=== PATIENT | female | born 1970 | race African-American/Black ===

== ENCOUNTER 2016-11-04 18:39 | Emergency (ER) | payer MEDICARE, MEDICAID ==
[2016-11-04 19:47] LABS: APPEARANCE,URINE CLEAR; BILIRUBIN,URINE NEGATIVE (NEGATIVE); GLUCOSE, URINE NEGATIVE (NEGATIVE); KETONES,URINE TRACE mg/dL (NEGATIVE); LEUKOCYTE ESTERASE,URINE NEGATIVE (NEGATIVE); NITRITE,URINE NEGATIVE (NEGATIVE); PROTEIN,URINE NEGATIVE (NEGATIVE); URINE SPECIFIC GRAVITY 1.003; UROBILINOGEN,URINE NEGATIVE mg/dL (<2.0)
[2016-11-04 19:47] LABS: ABSOLUTE BASOPHILS # (AUTO) 0.1 10^3/uL (0.0-0.2); ABSOLUTE EOSINOPHILS # (AUTO) 0.1 10^3/uL (0.0-0.6); ABSOLUTE LYMPHOCYTES (AUTO) 2.2 10^3/uL (0.5-4.7); ABSOLUTE MONOCYTES (AUTO) 0.6 10^3/uL (0.1-1.4); ABSOLUTE NEUT (AUTO) 5.3 10^3/uL (1.7-8.2); BASOPHILS % (AUTO) 0.8 % (0-2); EOSINOPHILS % (AUTO) 0.7 % (0-6); HEMATOCRIT 35.2 % (36.0-47.0); HEMOGLOBIN 11.5 g/dL (12.0-15.5); HGB HCT DIFFERENCE -0.7; LYMPHOCYTES % (AUTO) 26.7 % (13-45); MEAN CORPUSCULAR HEMOGLOBIN 27.1 pg (27.0-33.4); MEAN CORPUSCULAR HGB CONC 32.6 g/dL (32.0-36.0); MEAN CORPUSCULAR VOLUME 83 fl (80-97); MONOCYTES % (AUTO) 7.7 % (3-13); RED BLOOD COUNT 4.23 10^6/uL (3.72-5.28); RED CELL DISTRIBUTION WIDTH 15.4 % (11.5-14.0); SEGMENTED NEUTROPHILS % (AUTO) 64.1 % (42-78); WHITE BLOOD COUNT 8.3 10^3/uL (4.0-10.5)
[2016-11-04 20:01] LABS: ALANINE AMINOTRANSFERASE 35 U/L (9-52); ALBUMIN 4.4 g/dL (3.5-5.0); ALKALINE PHOSPHATASE 81 U/L (38-126); ANION GAP 14 (5-19); ASPARTATE AMINO TRANSFERASE 25 U/L (14-36); BILIRUBIN,DIRECT 0.3 mg/dL (0.0-0.4); BILIRUBIN,TOTAL 1.1 mg/dL (0.2-1.3); BLOOD UREA NITROGEN 8 mg/dL (7-20); CALCIUM 11.6 mg/dL (8.4-10.2); CARBON DIOXIDE 20 mmol/L (22-30); CHLORIDE 109 mmol/L (98-107); CREATININE RESULT 0.97 mg/dL (0.52-1.25); GLUCOSE 82 mg/dL (75-110); POTASSIUM 3.7 mmol/L (3.6-5.0); SODIUM 143.1 mmol/L (137-145); TOTAL PROTEIN 7.5 g/dL (6.3-8.2)
[2016-11-04 20:07] LABS: ALCOHOL < 10 mg/dL (NONE DETECTED)
[2016-11-04 20:26] LABS: URINE BARBITURATES SCREEN NEGATIVE; URINE METHADONE SCREEN NEGATIVE; URINE OPIATES LOW NEGATIVE; URINE PHENCYCLIDINE SCREEN NEGATIVE
--- NOTE | 2016-11-04 20:37 | ER Document Report ---
ED Psych Disorder / Suicide - General Information source: Patient TRAVEL OUTSIDE OF THE [place] IN LAST 30 DAYS: No <MARGUERITE RICHTER - Last Filed: 11/04/16 23:09> <ISRRAEL BALBUENA - Last Filed: 11/04/16 23:15> - General Chief Complaint: Psych Problem Stated Complaint: PSYCH EVALUATION Time Seen by Provider: 11/04/16 20:21 Notes: Patient is a 46 year old female who presents to the ED with complaints of visual hallucinations of animals and auditory hallucinations. Patient states she thought a man named Ayad liked her and was going to her and she has stayed outside and all day yesterday. Patient states she has not had much sleep. Patient keeps asking to talk to her mom, dad and sister and stating that she wants someone to send someone to go check on them at their house. Patient wants someone to pray for them. Patient states she has been out of her medications for 3-4 days starting last week. Patient denies any of her hallucinations telling her they are going to hurt her or telling her to hurt herself. Patient keeps repeating "you are going to think this is crazy but its real". Patient is visibly upset. She states her parents brought her into the ED. Parents brought her in because she has been out of her medication for three days , medication is delivered through a mail order pharmacy, she has been talking non stop and not sleeping. This is typical when she does not get any sleep. ( MARGUERITE RICHTER) - Related Data Allergies/Adverse Reactions: No Known Allergies Allergy (Verified 11/04/16 20:47) Past Medical History - General Information source: Patient - Social History Smoking Status: Never Smoker Chew tobacco use (# tins/day): No Frequency of alcohol use: None Drug Abuse: None Family History: Reviewed & Not Pertinent Patient has suicidal ideation: No Patient has homicidal ideation: No Renal/ Medical History: Denies: Hx Peritoneal Dialysis Psychiatric Medical History: Reports: Hx Bipolar Disorder, Hx Schizophrenia <MARGUERITE RICHTER - Last Filed: 11/04/16 23:09> Review of Systems - Review of Systems Constitutional: No symptoms reported EENT: No symptoms reported Cardiovascular: No symptoms reported Respiratory: No symptoms reported Gastrointestinal: No symptoms reported Genitourinary: No symptoms reported Female Genitourinary: No symptoms reported Musculoskeletal: No symptoms reported Skin: No symptoms reported Hematologic/Lymphatic: No symptoms reported Neurological/Psychological: See HPI, Hallucinations <MARGUERITE RICHTER - Last Filed: 11/04/16 23:09> Physical Exam <MARGUERITE RICHTER - Last Filed: 11/04/16 23:09> <ISRRAEL BALBUENA - Last Filed: 11/04/16 23:15> - Vital signs Vitals: Temp Pulse Resp BP Pulse Ox 97.9 F 77 16 151/89 H 96 11/04/16 18:47 11/04/16 18:47 11/04/16 18:47 11/04/16 18:47 11/04/16 18:47 - Notes Notes: GENERAL: Alert. Upset. Agitated. Difficult to get her to focus and answer questions. HEAD: Normocephalic, atraumatic. EYES: Pupils equal, round, and reactive to light. Extraocular movements intact. ENT: Oral mucosa moist, tongue midline. NECK: Full range of motion. Supple. Trachea midline. LUNGS: Clear to auscultation bilaterally, no wheezes, rales, or rhonchi. No respiratory distress. HEART: Regular rate and rhythm. No murmurs, gallops, or rubs. ABDOMEN: Soft, non-tender. Non-distended. Bowel sounds present in all 4 quadrants. EXTREMITIES: Moves all 4 extremities spontaneously. No edema. No cyanosis. NEUROLOGICAL: Alert and oriented x3. Normal speech. PSYCH: Tearful. Agitated. Demanding we call family because they are in danger. Able to be distracted and calmed down but when left alone cries again and demands to see parents. Somewhat unreasonable. SKIN: Warm, dry, normal turgor. No rashes or lesions noted. (MARGUERITE RICHTER) Course - Laboratory Result Diagrams: 11/04/16 19:33 11/04/16 19:33 <MARGUERITE RICHTER - Last Filed: 11/04/16 23:09> - Laboratory Result Diagrams: 11/04/16 19:33 11/04/16 19:33 <ISRRAEL BALBUENA - Last Filed: 11/04/16 23:15> - Re-evaluation Re-evalutation: 11/04/16 21:04 Family is at bedside. Able to speak with parents. Parents brought her in because she has been out of her medication for three days, medication is delivered through a mail order pharmacy, she has been talking non stop and not sleeping. This is typical when she does not get any sleep. (MARGUERITE RICHTER) 11/04/16 23:11CBC shows anemia with hemoglobin 11.5, CMP grossly unremarkable mild dehydration with a CO2 of 20, calcium is elevated at 11.6. No signs of renal failure, urinalysis shows trace ketones and small blood, urine drug screen negative, salicylates, acetaminophen and alcohol are all undetectable, lithium level surprisingly is elevated at 1.5. This is unexpected as the patient has been out of her medications for 3 days. 11/04/16 23:12 11/04/16 23:12 Patient will be observed in the ED overngiht, treated with haldol and benadryl as she is still quite agitated, dose had to be increased and Ativan added as 50 mg of Benadryl and 5 mg of Haldol did not calm her down at all and she was still having active hallucinations of a man in her room. Patient will have her lithium level rechecked in the morning to ensure that it is clearing. No evidence of lithium toxicity at this time that will require dialysis. Patient is involuntarily committed. Parents are aware of this. Mental health has been consulted. (ISRRAEL BALBUENA) - Vital Signs Vital signs: Temp Pulse Resp BP Pulse Ox 97.7 F 87 16 164/92 H 97 11/04/16 21:26 11/04/16 21:26 11/04/16 21:26 11/04/16 21:26 11/04/16 21:26 - Laboratory Laboratory results interpreted by me: 11/04/16 11/04/16 11/04/16 18:50 19:33 19:33 Hgb 11.5 L Hct 35.2 L RDW 15.4 H Chloride 109 H Carbon Dioxide 20 L Calcium 11.6 H Urine Ketones TRACE H Urine Blood SMALL H Salicylates < 1.0 L Acetaminophen < 10 L [place] 11/04/16 19:33 Hgb Hct RDW Chloride Carbon Dioxide Calcium Urine Ketones Urine Blood Salicylates Acetaminophen [place] 1.5 H - EKG Interpretation by Me Additional EKG results interpreted by me: 11/04/16 23:12 EKG shows sinus rhythm at a rate of 75, segment elevations or depressions, no T- wave inversions, per my interpretation (ISRRAEL BALBUENA) Discharge <MARGUERITE RICHTER - Last Filed: 11/04/16 23:09> <ISRRAEL BALBUENA - Last Filed: 11/04/16 23:15> - Discharge Clinical Impression: Elevated lithium level, Auditory hallucinations, Visual hallucinations Hypertension Qualifiers: Hypertension type: essential hypertension Qualified Code(s): I10 - Essential ( primary) hypertension Condition: Stable Disposition: PSYCH HOSP/UNIT Scribe Attestation: 11/04/16 23:14 I personally performed the services described in the documentation, reviewed and edited the documentation which was dictated to the scribe in my presence, and it accurately records my words and actions. (ISRRAEL BALBUENA) Scribe Documentation - Scribe Written by Ying:: ying Lin, 11/04/[id number] acting as scribe for :: Abiola <MARGUERITE RICHTER - Last Filed: 11/04/16 23:09>
[2016-11-04] MEDS ORDERED: DIPHENHYDRAMINE HCL 50 MG/ML VIAL IM ONE ×2 (20:52→23:02)
[2016-11-04] MEDS ORDERED: HALOPERIDOL LACTATE INJ 5 MG/1 ML VIAL IM ONE ×2 (20:52→23:02)
[2016-11-04] MEDS ORDERED: LORAZEPAM INJ 2 MG/1 ML VIAL IM ONE (23:02)
--- NOTE | 2016-11-04 23:13 | EKG REPORT ---
SEVERITY:- BORDERLINE ECG - SINUS RHYTHM CONSIDER ANTERIOR INFARCT : Confirmed by: Rip Zhu 04-Nov-2016 23:12:57
[2016-11-05] MEDS ORDERED: LORAZEPAM INJ 2 MG/1 ML VIAL IM ONE (03:42)
[2016-11-05] MEDS ORDERED: HALOPERIDOL LACTATE INJ 5 MG/1 ML VIAL IM ONE (03:42)
--- NOTE | 2016-11-05 09:16 | ER Document Report ---
ED Psych Disorder / Suicide - General Chief Complaint: Psych Problem Stated Complaint: PSYCH EVALUATION Time Seen by Provider: 11/04/16 20:21 Information source: Patient, Parent, [facility] Records Cannot obtain history due to: Altered mental status - acute psychosis TRAVEL OUTSIDE OF THE [place] IN LAST 30 DAYS: No - HPI Patient complains to provider of: Bizarre behavior, Hallucinating Onset: Other Onset was: Cannot confirm Suicide Risk Factors: Frightened friends/family, Hallucinations, Schizophrenia Situational problems related to: Other - no medications x3 days Normal mood: No Associated symptoms: Auditory hallucinations, Irritable, Labile, Episcopal preoccupation, Tactile hallucinations, Uncooperative, Visual hallucinations Similar symptoms previously: Yes Recently seen / treated by doctor: Yes Notes: Patient is a 46 year old female who presented overnight via her family due to acute psychosis, and possible medicaiton noncompliance x3 days due to running out of mail delivered meds. Patient was administered several rounds of medications last night to assist her in remaining calm and safe. Patient this morning is not verbally communicating, instead stared and the points her finger at me. Mother, Timothy Hernández states she thinks the patient receives her mail through the mail but has been off of the medications x3 days. Mother states she was seeing animals in the [place], thinking people were talking about her, hearing voices. Mother states she knows one medication is [place], and another, but states [facility] in [place]. Mother describes patient's baseline as "acting alright" and does not experience psychosis when properly medicated. Mother states the patient is followed by Dr. Kearns, and has been to [facility] around 2 times, and [place] 2 times. Mother states she is a jewish woman, but when she is "like this" she is hyperreligious. Patient is alert and based on minimal interaction, is oriented to name. Patient' s mood is irritable with congruent affect. Patient did deny SI/HI. Patient was notably observed by staff and family to experience internal stimuli, paranoia, and delusions. Thought processes were guarded. Attention and focus were poor. Insight, judgment, and impulse control were poor. Unspecified Schizohprenia and Other Psychotic Disorder Patient is recommended to continue under IVC for placement in a 24 hour inpatient psychiatric unit. Patient is a danger to herself due to psychosis related impaired insight and judgment abilities. I consulted with Dr. Winkler in regards to the care and management of this patient. - Related Data Allergies/Adverse Reactions: No Known Allergies Allergy (Verified 11/04/16 20:47) Past Medical History - General Information source: Patient - Social History Smoking Status: Never Smoker Chew tobacco use (# tins/day): No Frequency of alcohol use: None Drug Abuse: None Family History: Reviewed & Not Pertinent Patient has suicidal ideation: No Patient has homicidal ideation: No Renal/ Medical History: Denies: Hx Peritoneal Dialysis Psychiatric Medical History: Reports: Hx Bipolar Disorder, Hx Depression - Anxiety, Hx Schizophrenia - Immunizations Hx Diphtheria, Pertussis, Tetanus Vaccination: Yes Physical Exam - Vital signs Vitals: Temp Pulse Resp BP Pulse Ox 97.9 F 77 16 151/89 H 96 11/04/16 18:47 11/04/16 18:47 11/04/16 18:47 11/04/16 18:47 11/04/16 18:47 Course - Vital Signs Vital signs: Temp Pulse Resp BP Pulse Ox 97.9 F 68 18 158/81 H 97 11/05/16 07:48 11/05/16 07:48 11/05/16 07:48 11/05/16 07:48 11/05/16 07:48 - Laboratory Result Diagrams: 11/04/16 19:33 11/04/16 19:33 Laboratory results interpreted by me: 11/04/16 11/04/16 11/04/16 18:50 19:33 19:33 Hgb 11.5 L Hct 35.2 L RDW 15.4 H Chloride 109 H Carbon Dioxide 20 L Calcium 11.6 H Urine Ketones TRACE H Urine Blood SMALL H Salicylates < 1.0 L Acetaminophen < 10 L [place] 11/04/16 19:33 Hgb Hct RDW Chloride Carbon Dioxide Calcium Urine Ketones Urine Blood Salicylates Acetaminophen [place] 1.5 H Discharge - Discharge Clinical Impression: Elevated lithium level, Auditory hallucinations, Visual hallucinations Hypertension Qualifiers: Hypertension type: essential hypertension Qualified Code(s): I10 - Essential ( primary) hypertension Condition: Stable Disposition: PSYCH HOSP/UNIT Scribe Attestation: 11/04/16 23:14 I personally performed the services described in the documentation, reviewed and edited the documentation which was dictated to the scribe in my presence, and it accurately records my words and actions.
--- NOTE | 2016-11-05 09:59 | ER Document Report ---
Doctor's Note Notes: 11/05/16 09:57 This 46-year-old female patient came into the emergency room last night acutely psychotic. Her lithium level was actually above the upper limit of normal. On rounds this morning she was found to have a left eye conjunctivitis with the lids matted shut with considerable discharge and injected conjunctiva. There appears to be a very mild involvement of the right eye on close examination. The nurse will start warm washcloth soaks to clean the crusted mucus discharge and will start Polytrim ophthalmic solution drops. At this time she remains on IVC hold waiting placement.
[2016-11-05] MEDS ORDERED: POLYMYXIN B SULFATE/TMP OPH SOLN 10 ML OS SCH (10:00)
[2016-11-05] MEDS: POLYMYXIN B SULFATE/TMP OPH SOLN 10 ML OU SCH ×2 (12:00→15:01)
[2016-11-05 17:57] VITALS: BP 146/76
== END 2016-11-05 17:57 ==
LOC: ER 18:39
DX: F20.9 Schizophrenia, unspecified (principal); I10 Essential (primary) hypertension; H10.9 Unspecified conjunctivitis; D64.9 Anemia, unspecified; E86.0 Dehydration
CPT/HCPCS: 93005; 99285; 96372; 36415; 80307 ×4; 80178; 85025; 81025; 80053; 81001; 93010; J1200; J1630 ×2; J3490; J2060 ×2